=== PATIENT | male | born 1990 | race Two or more races ===

== ENCOUNTER 2018-07-06 14:39 | Emergency (ER) | payer SELFPAY ==
[~2018-07-06] VITALS: Ht 160 cm; Wt 59.0 kg
[2018-07-06 14:55] VITALS: BP 114/54
[2018-07-06] MEDS ORDERED: HYDROcodone/APAP 5/325MG 1 TAB TABLET PO ONE (15:15)
[2018-07-06] MEDS ORDERED: DIPHTH,PERTUSS(ACELL),TET TOX 0.5 ML DISP.SYRIN. VAX IM ONE (15:15)
--- NOTE | 2018-07-06 15:26 | RAD ---
3 views left hand 07/06/2018 3:01 PM Indication: Lacerations Comparison: None available Findings: There is partial amputation of the distal aspect of the second phalangeal tuft. Punctate radiodensities within the distal soft tissues of the second finger could represent bone fragments or small radiopaque foreign bodies. Soft tissue irregularity is seen distal most third digit without associated fracture. No other fractures or dislocations are identified. IMPRESSION: 1. Partial amputation of the distal second phalangeal tuft with overlying laceration. This is an open fracture. 2. Soft tissue irregularity involving the distal third digit without evidence of fracture Electronically signed by: Sebastian Barnes MD (07/06/2018 3:23 PM) [id number]
[2018-07-06] MEDS ORDERED: NEOMY/BACITR/POLYMYXIN OINT PACKET. TP ONE (15:45)
[2018-07-06] MEDS ORDERED: PIPERACILLIN/TAZOBACTAM 3.375 GM in IV NORMAL SALINE 50ML 50 ML IV ONE (16:00)
--- NOTE | 2018-07-06 17:08 | PHYS DOC ---
Past Medical History Past Medical History: No Pertinent History Past Surgical History: No Surgical History Alcohol Use: Occasionally Drug Use: Marijuana Adult General Chief Complaint Chief Complaint: LACERATION/AVULSION HPI HPI Patient is a 28 year old male with no significant medical history who presents to the ED today with lacerations to the left index finger, middle and ring finger. Patient was working with a table saw that kicked back and cut him. Remington roca is right-handed. Review of Systems Review of Systems Constitutional: Denies fever or chills [] Musculoskeletal: Denies back pain or joint pain [] Integument: Reports lacerations to the left index finger, middle finger and ring finger. Neurologic: Denies headache, focal weakness or sensory changes [] All other systems were reviewed and found to be within normal limits, except as documented in this note. Current Medications Current Medications Current Medications Medications (Trade) Dose Ordered Sig/Gerard Start Time Stop Time Status Last Admin Dose Admin Acetaminophen/ Hydrocodone Bitart (Lortab 5/325) 2 tab 1X ONCE 07/06/18 15:15 07/06/18 15:16 DC 07/06/18 15:29 2 TAB Diphtheria/ Tetanus/Acell Pertussis (Boostrix) 0.5 ml ONCE ONCE 07/06/18 15:15 07/06/18 15:16 DC 07/06/18 15:29 0.5 ML Neomycin/ Polymyxin/ Bacitracin (Triple Antibiotic Ointment) 1 pkt 1X ONCE 07/06/18 15:45 07/06/18 15:46 DC 07/06/18 16:05 1 PKT Piperacillin Sod/ Tazobactam Sod 3.375 gm/Sodium Chloride 50 ml @ 100 mls/hr 1X ONCE 07/06/18 16:00 07/06/18 16:29 DC 07/06/18 15:58 100 MLS/HR Allergies Allergies Allergies Coded Allergies Type Severity Reaction Last Updated Verified No Known Drug Allergies 07/06/18 No Physical Exam Physical Exam Constitutional: Well developed, well nourished, no acute distress, non-toxic appearance. [] Skin: See extremity Back: No tenderness, no CVA tenderness. [] Extremities: Left index finger. Keep especially the medial aspect with a laceration on the medial and approximately 3 x 2 cm. The nail bed is disrupted. The tip of the left middle finger with another laceration approximately 1 cm long, left ring finger tip with another laceration approximately 0.5 cm. There is no obvious tendon involvement in any of this lacerations. Patient is able to flex and extend the fingers at the MIP, PIP and DIP joints. Adequate radial, medial, ulnar sensation to the left fingers. +2 left radial pulse. Cap refill less than 2 seconds the left fingers. Neurologic: Alert and oriented X 3, normal motor function, normal sensory function, no focal deficits noted. [] Psychologic: Affect normal, judgement normal, mood normal. [] Current Patient Data Vital Signs Vital Signs Date Time Temp Pulse Resp B/P (MAP) Pulse Ox O2 Delivery O2 Flow Rate FiO2 07/06/18 15:29 16 07/06/18 14:55 98.3 61 114/54 (74) 99 Room Air 98.3 EKG EKG [] Radiology/Procedures Radiology/Procedures []PROCEDURE: HAND LEFT 3V 3 views left hand 07/06/2018 3:01 PM Indication: Lacerations Comparison: None available Findings: There is partial amputation of the distal aspect of the second phalangeal tuft. Punctate radiodensities within the distal soft tissues of the second finger could represent bone fragments or small radiopaque foreign bodies. Soft tissue irregularity is seen distal most third digit without associated fracture. No other fractures or dislocations are identified. IMPRESSION: 1. Partial amputation of the distal second phalangeal tuft with overlying laceration. This is an open fracture. 2. Soft tissue irregularity involving the distal third digit without evidence of fracture Electronically signed by: Sebastian Milan MD (07/06/2018 3:23 PM) [id number] DICTATED and SIGNED BY: SEBASTIAN MILAN MD DATE: 07/06/18 1523 Course & Med Decision Making Course & Med Decision Making Pertinent Labs and Imaging studies reviewed. (See chart for details) This is a 28-year-old male patient presented to the ED today with left index finger, middle finger, and middle finger. Left hand x-rays interpreted by radiologist were noted for-Partial amputation of the distal second phalangeal tuft with overlying laceration. This is an open fracture. Patient was started on Zosyn IV in the ED. Lacerations were cleaned thoroughly by me using 1000ML of normal saline, Neosporin applied to them, covered with nonstick dressing. Provided the hand surgeon to follow up with as an outpatient. Discharged on cephalexin. Tetanus updated. Dragon Disclaimer Dragon Disclaimer This electronic medical record was generated, in whole or in part, using a voice recognition dictation system. Departure Departure Impression: Primary Impression: Open fracture of tuft of distal phalanx of finger Additional Impression: Finger laceration Disposition: 01 HOME, SELF-CARE Condition: STABLE Referrals: NO PCP (PCP) Call hand surgery on Monday and set up a follow up appointment. Their number is [phone] Patient Instructions: Finger Fracture (Phalangeal)-Sports[employer], Fingertip Laceration Additional Instructions: You were evaluated in the emergency room and noted to have an open fracture to the left index finger with lacerations to the left middle finger and ring finger. We provided you instructions to follow-up with [facility] hand surgery. Call them on Monday morning and set up a follow-up appointment. Take the prescribed antibiotics until completed. Keep the areas clean and dry. Scripts Hydrocodone/Apap 5-325 (NORCO 5-325 TABLET) 1 Each Tablet 1 TAB PO Q6HRS, #25 TAB Prov: JENNIFER FORD APRN 07/06/18 Cephalexin (CEPHALEXIN) 500 Mg Tablet 1 TAB PO QID, #40 TAB Prov: JENNIFER FORD APRN 07/06/18 Problem Qualifiers Additional Impression: Finger laceration Encounter type: initial encounter Finger: index finger Damage to nail status: with damage Foreign body presence: without foreign body Laterality: left Qualified Codes: S61.311A - Laceration without foreign body of left index finger with damage to nail, initial encounter JENNIFER FORD APRN July 06, 2018 17:08
[2018-07-06] MEDS ORDERED: CEPH500T PO (17:17)
[2018-07-06] MEDS ORDERED: HYDR-3164 PO (17:17)
== END 2018-07-06 17:35 | disposition home or self-care (01) ==
LOC: ER 14:39
DX: S62.631B Displaced fracture of distal phalanx of left index finger, initial encounter for open fracture (principal); W26.8XXA Contact with other sharp object(s), not elsewhere classified, initial encounter; Y93.89 Activity, other specified; Y92.89 Other specified places as the place of occurrence of the external cause; Y99.0 Civilian activity done for income or pay
CPT/HCPCS: 73130; 90471; 90715; 96365; 99284; J2543